=== PATIENT | male | born 1955 | race Caucasian/White ===

== ENCOUNTER 2018-01-22 06:52 | Inpatient (IN) | payer BC ==
[2018-01-21 11:23] VITALS: BMI 27.3
[2018-01-22 07:32] LABS: #Basophils 0.1 thou/uL (0.0-0.2); #Lymphocytes 2.7 thou/uL (1.20-3.40); #Monocytes 0.9 thou/uL (0.11-0.59); #Neutrophils 2.6 thou/uL (1.40-6.50); %Eosinophils 13.7 % (0.0-10.0); %Lymphocytes 36.8 % (21.0-51.0); %Monocytes 12.6 % (0.0-10.0); %Neutrophils 35.8 % (42.0-75.0); Hemoglobin 13.6 g/dL (14.0-18.0); Mean Corpuscular HGB CONC 34.8 g/dL (32.0-36.0); Mean Corpuscular Hemoglobin 33.7 pg (27.0-31.0); Mean Platelet Volume 6.9 fL (7.4-10.4); Platelet Count 211 thou/uL (130-400); RBC Distribution Width 11.9 % (11.5-14.5); Red Blood Cell (RBC) Count 4.04 mill/uL (4.70-6.10); White Blood Cell (WBC) Count 7.3 thou/uL (4.8-10.8)
[2018-01-22 07:52] LABS: Anion Gap 11 mmol/L (10-20); BUN (Urea Nitrogen) 12 mg/dL (8.4-25.7); Calc. Creatinine Clearance 101 mL/min (70-130); Calcium 10.2 mg/dL (7.8-10.44); Carbon Dioxide 28 mmol/L (22-29); Chloride 104 mmol/L (98-107); Estimated GFR-MDRD 86; Glucose 161 mg/dL (70-105); Potassium 3.7 mmol/L (3.5-5.1); Sodium 139 mmol/L (136-145)
[2018-01-22] MEDS ORDERED: CEFAZOLIN/Water 2 GM/20 ML SYRINGE ONE (08:18)
[2018-01-22] MEDS ORDERED: Sodium Chloride 0.9% 10 ML ONE (08:44)
[2018-01-22] MEDS ORDERED: Midazolam HCl 2 mg/2 ml Vial ONE (08:48)
[2018-01-22] MEDS ORDERED: Fentanyl 250 MCG/5 ML VIAL ONE (08:48)
[2018-01-22] MEDS ORDERED: Fentanyl 100 MCG/2 ML VIAL ONE ×2 (10:47→11:24)
[2018-01-22] MEDS ORDERED: Morphine 4 MG/ML VIAL ONE (12:04)
[2018-01-22] MEDS ORDERED: HYDROcodone/Acetaminophen 5/325 mg Tablet ONE (13:18)
--- NOTE | 2018-01-22 14:09 | OP ---
DATE OF PROCEDURE: 01/22/2018 SURGEON: Swapnil Head M.D. DEATH CLAIM EXAMINER: Corina Grider PROCEDURES PERFORMED: Left L4-L5 laminectomy, facetectomy, foraminotomy, interbody arthrodesis, intr avertebral biomechanical device, local morselized autograft, demineralized bone matrix, pedicle screw instrumentation L4-L5. PROCEDURE IN DETAIL: The patient was brought to the operating room, intubated. He was rolled in the prone position on gel-filled chest rolls. The previous incision was reopened and L4-5 was exposed b ilaterally. We performed left L4-L5 laminectomy, facetectomy, and foraminotomy in the region of the prior laminotomy. We next explored the left L4-5 disk region and completely decompressed left L5 ner ve root and disk material. The disk itself was incised and debrided and the bony endplates decortica jose for the purpose of arthrodesis. Appropriately sized intravertebral biomechanical PEEK device was brought into the field, filled with demineralized bone matrix, local morselized autograft, and tappe d into place securely at L4-5. Next, pedicle screws were placed at left L4 and left L5 using lateral fluoroscopic guidance and positioning was confirmed by x-ray. A hay was secured between the screws, connected by nuts which were final tightened. The wound was then extensively irrigated, immaculate hemostasis was secured. A combination of demineralized bone matrix, local morselized autograft was l aid over the right laminar and posterolateral surfaces for the purpose of arthrodesis. Vancomycin po wder was applied and the wound closed in anatomic layers.
[2018-01-22] MEDS ORDERED: Glycopyrrolate 0.2 MG/ML 5 ML SYRINGE ONE (14:27)
[2018-01-22] MEDS ORDERED: Dexamethasone 20 MG/5 ML VIAL ONE (14:27)
[2018-01-22] MEDS ORDERED: Lidocaine 1% PF 5 ML VIAL ONE (14:27)
[2018-01-22] MEDS ORDERED: PROPOFOL 200 MG/20 ML VIAL ONE (14:27)
--- NOTE | 2018-01-23 12:55 | DIS ---
ATTENDING PHYSICIAN: Dr. Swapnil Head DATE OF ADMISSION: 01/22/2018 DATE OF DISCHARGE: 01/22/2018 DISCHARGE SUMMARY: The patient is a 62-year-old male with a past medical history of hypertension, hy perlipidemia, coronary artery disease who was recently seen in our office for evaluation of left leg pain. Leg pain had been intermittent over the past few years. The patient had undergone 2 prior L4- L5 left-sided diskectomies without complete resolution of his symptoms. His repeat MRI showed degene rative disk disease as well as left L4-L5 disk extrusion. The patient was evaluated by Dr. Head the office and he recommended left L4-L5 diskectomy and fusion. The patient underwent this procedure on 01/22/2018 without any complications. Following his procedure, he was transitioned to day stay w here his pain was well controlled with p.o. medications. He was tolerating a regular diet, ambulator y in the department and voiding appropriately. The patient was dismissed to home and we will plan to follow up with the patient approximately 2 weeks with repeat set of x-rays. I have sent him home wi th a script for hydrocodone for pain, tizanidine, muscle relaxer and Keflex. I have discussed home c are precautions and reasons to reach out to us sooner.
--- NOTE | 2018-01-27 17:38 | EKG ---
Test Reason : PREOP Blood Pressure : / mmHG Vent. Rate : 071 BPM Atrial Rate : 071 BPM P-R Int : 166 ms QRS Dur : 090 ms QT Int : 374 ms P-R-T Axes : 041 -03 054 degrees QTc Int : 406 ms Normal sinus rhythm Normal ECG No previous ECGs available Confirmed by DR. Kellen MALHOTRA ([id number]) on 01/27/2018 5:37:41 PM Referred By: SHAHZAD Confirmed By:DR. Kellen MALHOTRA
== END 2018-01-22 15:36 | disposition home or self-care (01) | DRG 455 ==
LOC: SURG A 06:52
PROVIDERS: ADMIT Neurological Surgery; ATTEND Neurological Surgery
PROC: 0SG0071 Fusion of Lumbar Vertebral Joint with Autologous Tissue Substitute, Posterior Approach, Posterior Column, Open Approach (ICD-10-PCS; principal; 2018-01-22)
PROC: 0SG00AJ Fusion of Lumbar Vertebral Joint with Interbody Fusion Device, Posterior Approach, Anterior Column, Open Approach (ICD-10-PCS; 2018-01-22)
PROC: 01NB0ZZ Release Lumbar Nerve, Open Approach (ICD-10-PCS; 2018-01-22)
DX: M54.16 Radiculopathy, lumbar region (principal); I10 Essential (primary) hypertension; E78.5 Hyperlipidemia, unspecified; I25.10 Atherosclerotic heart disease of native coronary artery without angina pectoris; I25.2 Old myocardial infarction; Z87.891 Personal history of nicotine dependence; M51.26 Other intervertebral disc displacement, lumbar region; Z79.899 Other long term (current) drug therapy; Z79.82 Long term (current) use of aspirin; Z79.84 Long term (current) use of oral hypoglycemic drugs; Z86.718 Personal history of other venous thrombosis and embolism; G47.00 Insomnia, unspecified
CPT/HCPCS: 36415; 76001; 80048; 85025; 93005; 93010; 96374; A4216; C1713; C1768; J1100; J2001; J2250; J2270; J2704; J3010; J3370; J3490

== ENCOUNTER 2018-02-06 10:06 | Outpatient (CLI) | payer BC ==
--- NOTE | 2018-02-06 12:17 | RAD ---
TWO VIEWS LUMBAR SPINE: History: Follow up exam, status post-surgery two weeks ago. FINDINGS: Two views of the lumbar spine demonstrate five lumbar type vertebral bodies. There is pseudoarthrosis of the left and right L5 ala with the sacrum. Unilateral left sided transpedicular screw at L4 and L 5. No perihardware lucency. No significant spinal listhesis. Disc prostheses at L4-5. Mild rightward curvature lumbar spine. IMPRESSION: 1. Mild rightward curvature lumbar spine. 2. Lumbar fusion as described above. POS: NELL
== END 2018-02-06 10:07 | disposition home or self-care (01) ==
LOC: TBSIIMAG 10:06
PROVIDERS: ATTEND Neurological Surgery
DX: M54.16 Radiculopathy, lumbar region (principal); Z98.1 Arthrodesis status
CPT/HCPCS: 72100